=== PATIENT | female | born 1945 | race Caucasian/White ===

== ENCOUNTER → 2020-09-24 | Outpatient (CLI) | payer MEDICARE ==
[2020-09-25 08:14] LABS: RHEUMATOID ARTHRITIS FACTOR 15.7 IU/mL (0.0-13.9); VITAMIN D, 25-HYDROXY 18.8 ng/mL (30.0-100.0)
== END ==
LOC: LAB 12:56
PROVIDERS: Nurse Practitioner Family
DX: D89.9 Disorder involving the immune mechanism, unspecified (principal); R76.8 Other specified abnormal immunological findings in serum; M25.50 Pain in unspecified joint; M81.0 Age-related osteoporosis without current pathological fracture
CPT/HCPCS: 36415; 82550; 83520; 85652; 86140; 86200; 86431